=== PATIENT | female | born 1975 | race Caucasian/White ===

== ENCOUNTER 2021-10-29 18:04 | Emergency (ER) | payer SELFPAY ==
[2021-10-29 18:27] VITALS: BMI 245.1
[2021-10-29 21:14] LABS: BASO % 0.4 % (0-2.0); EOS % 1.9 % (0-4.5); HEMATOCRIT 37.9 % (32.4-45.2); HEMOGLOBIN 12.6 GM/dL (10.7-15.3); LYMPH % 28.7 % (8-40); MCH 26.6 pg (25.7-33.7); MCHC 33.4 g/dl (32.0-36.0); MEAN CELL VOLUME 79.8 fl (80-96); MEAN PLT VOLUME 8.7 fl (7.5-11.1); MONO % 8.2 % (3.8-10.2); NEUT % 60.8 % (42.8-82.8); PLATELET COUNT 417 10^3/uL (134-434); RBC 4.74 M/mm3 (3.60-5.2); RDW 14.4 % (11.6-15.6); WHITE BLOOD COUNT 8.3 K/mm3 (4.0-10.0)
[2021-10-29 21:25] LABS: INR 0.97 (0.83-1.09); PROTHROMBIN TIME (PATIENT) 11.1 SEC (9.7-13.0)
[2021-10-29 21:30] LABS: CALCIUM 9.4 mg/dL (8.5-10.1)
[2021-10-29 21:31] LABS: ALBUMIN 3.7 g/dl (3.4-5.0); BLOOD UREA NITROGEN 9.8 mg/dL (7-18)
[2021-10-29 21:34] LABS: CREATININE 0.7 mg/dL (0.55-1.3)
[2021-10-29 21:36] LABS: BILIRUBIN,TOTAL 0.2 mg/dL (0.2-1); TOT PROT 7.5 g/dl (6.4-8.2)
[2021-10-30 06:36] VITALS: BP 121/64; PULSE 60; RESP 19; TEMP 98.5
== END 2021-10-30 06:45 | disposition short-term general hospital (02) ==
LOC: JER 18:04
DX: H47.092 Other disorders of optic nerve, not elsewhere classified, left eye (principal)
CPT/HCPCS: 0241U-QW; 36415; 70450-TC; 80053; 84443; 85025; 85610; 85730; 93005; 93010; 99285-25

== ENCOUNTER 2022-08-08 01:55 | Emergency (ER) | payer OTHER ==
[2022-08-08 02:04] VITALS: BP 161/88; PULSE 78; RESP 18; TEMP 98; BMI 25.0
[2022-08-08] MEDS ORDERED: ACETAMINOPHEN 1000 MG/100 ML BAG IVPB ONE (03:04)
[2022-08-08] MEDS ORDERED: ACETAMINOPHEN 325 MG TABLET (FP) PO ONE (03:21)
[2022-08-08] MEDS ORDERED: SIMETHICONE 80 MG TAB.CHEW (FP) PO ONE (03:22)
[2022-08-08] MEDS ORDERED: SIMETHICONE 80 MG TAB.CHEW (FP) ONE (03:24)
[2022-08-08] MEDS ORDERED: ACETAMINOPHEN 325 MG TABLET (FP) ONE (03:25)
[2022-08-08 03:32] LABS: BASO % 0.6 % (0-2.0); EOS % 1.2 % (0-4.5); HEMATOCRIT 36.6 % (32.4-45.2); HEMOGLOBIN 12.3 GM/dL (10.7-15.3); LYMPH % 26.6 % (8-40); MCH 26.9 pg (25.7-33.7); MCHC 33.8 g/dl (32.0-36.0); MEAN CELL VOLUME 79.7 fl (80-96); MEAN PLT VOLUME 8.6 fl (7.5-11.1); MONO % 9.7 % (3.8-10.2); NEUT % 61.9 % (42.8-82.8); PLATELET COUNT 366 10^3/uL (134-434); RBC 4.58 M/mm3 (3.60-5.2); RDW 13.9 % (11.6-15.6); WHITE BLOOD COUNT 8.6 K/mm3 (4.0-10.0)
[2022-08-08 03:51] LABS: POTASSIUM 4.1 mmol/L (3.5-5.1)
[2022-08-08 03:53] LABS: ALBUMIN 3.7 g/dl (3.4-5.0); CALCIUM 8.5 mg/dL (8.5-10.1)
[2022-08-08 03:54] LABS: BLOOD UREA NITROGEN 11.8 mg/dL (7-18)
[2022-08-08 03:57] LABS: CREATININE 0.6 mg/dL (0.55-1.3)
[2022-08-08 03:58] LABS: BILIRUBIN,TOTAL 0.2 mg/dL (0.2-1)
[2022-08-08 04:34] LABS: EPI CELLS 12 /uL (0-25.1); HYALINE CASTS 1 /uL (0-3.1); PH,URINE 6.5 (5.0-8.0); URINE APPEARANCE CLEAR; URINE BILIRUBIN NEGATIVE (NEGATIVE); URINE COLOR YELLOW; URINE GLUCOSE (UA) NEGATIVE (NEGATIVE); URINE KETONE NEGATIVE (NEGATIVE); URINE LEUK ESTERASE TRACE (NEGATIVE); URINE NITRITE NEGATIVE (NEGATIVE); URINE PROTEIN NEGATIVE (NEGATIVE); URINE RBC 2 /uL (0-23.9); URINE UROBILINOGEN 0.2 mg/dL (0.2-1.0); URINE WBC 2 /uL (0-25.8)
[2022-08-08 04:41] LABS: URINE BACTERIA 0.9 /uL (0-1359)
== END 2022-08-08 04:53 | disposition home or self-care (01) ==
LOC: JER 01:55
DX: R10.32 Left lower quadrant pain (principal); R14.1 Gas pain
CPT/HCPCS: 36415; 80053; 81003; 85025; 87086; 87491; 87591; 99283-25

== ENCOUNTER 2023-07-28 19:30 | Emergency (ER) | payer OTHER ==
[2023-07-28 19:36] VITALS: RESP 18; BMI 25.0
[2023-07-28] MEDS ORDERED: LIDOCAINE 4% PATCH TP ONE (20:20)
[2023-07-28] MEDS ORDERED: ACETAMINOPHEN 325 MG TABLET (FP) ONE (20:20)
[2023-07-28] MEDS: LIDOCAINE 4% PATCH TP ONE (20:23)
[2023-07-28] MEDS: ACETAMINOPHEN 325 MG TABLET (FP) PO ONE (20:23)
[2023-07-28 23:24] VITALS: BP 139/77; PULSE 68; TEMP 97.7
[2023-07-29] MEDS ORDERED: LIDOCAINE PATCH REMOVAL MC SCH (08:00)
== END 2023-07-28 23:24 | disposition home or self-care (01) ==
LOC: JERFT 19:30
DX: S22.21XA Fracture of manubrium, initial encounter for closed fracture (principal); R07.89 Other chest pain; M54.6 Pain in thoracic spine; V43.62XA Car passenger injured in collision with other type car in traffic accident, initial encounter
CPT/HCPCS: 71046-TC-FY; 71120-TC-FY; 72070-TC-FY; 84703; 93005; 93010; 99285-25